=== PATIENT | male | born 1965 | race Two or more races ===

== ENCOUNTER 2017-07-18 16:43 | Emergency (ER) | payer OTHER ==
[2017-07-18 17:07] VITALS: RESP 16
--- NOTE | 2017-07-18 17:51 | EDPHY ---
H & P HPI/ROS: Chief complaint: Left 5th finger injury History of present illness: 52-year-old male presents to the emergency department for a left 5th finger injury. He fell and struck his finger against the ground. Since then he has had difficulty moving it. He denies other associated signs or symptoms including no open wounds. No abnormal coolness or paresthesias in the finger. No other trauma. Smoking Status: Never smoked Physical Exam: General: Alert, nontoxic Skin: No open wounds to the left 5th finger Musculoskeletal: No deformities. However he cannot extend the left 5th finger in the DIP and PIP joint, he is extending in the MCP joint well. Good flexion in a the DIP, PIP and MCP joint well. Vascular: Capillary refill brisk in the left 5th finger. Neurologic: Sensation intact in the left 5th finger. Constitutional: Initial Vital Signs Temperature (C) 37 C 07/18/17 17:05 Heart Rate 65 07/18/17 17:05 Respiratory Rate 16 07/18/17 17:05 Blood Pressure 110/76 07/18/17 17:05 O2 Sat (%) 97 07/18/17 17:05 O2 Delivery Mode Room Air Allergies/Adverse Reactions: No Known Allergies Allergy (Unverified 07/18/17 17:03) Home Medications: Medication Instructions Recorded Lisinopril/Hydrochlorothiazide 1 each PO 07/18/17 [Lisinopril-Hctz 10-12.5 mg Tab] Metformin HCl [Metformin 1000 mg] 1,000 mg PO 07/18/17 Statin Drug 07/18/17 MDM/Departure - MDM Imaging: I viewed and interpreted images myself Procedures: Procedure: Splint placement. A finger splint was applied. After application of the splint I returned and re- examined the patient. The splint was adequately immobilizing the joint and distal to the splint the patient's circulation and sensation was intact. Medications Given: Patient seen under the supervision of my secondary supervising physician Dr. Rhianna Edward. Patient presents to the emergency department for a left 5th finger injury. The finger is neurovascularly intact. He has difficulty extending it. X-ray is concerning for a edward injury, no fracture or dislocation. Splinted. Referred to hand surgery for recheck. Return precautions are given. ED Course/Re-evaluation: Included but not limited to soft tissue injury, bony fracture, joint dislocation - Depart Disposition: Home, Routine, Self-Care Clinical Impression: Finger injury Qualifiers: Encounter type: initial encounter Laterality: left Qualified Code(s): S69.92XA - Unspecified injury of left wrist, hand and finger(s), initial encounter Condition: Good Instructions: Finger Sprain (ED) Additional Instructions: Please follow-up with a hand doctor this week for continued evaluation and care If symptoms worsen or new symptoms develop return to the emergency room for recheck Referrals: NONE *PRIMARY CARE P,. [Primary Care Provider] - As per Instructions Rut Ugalde MD [Medical Doctor] - As per Instructions
[2017-07-18 18:53] VITALS: BP 118/72; PULSE 74; TEMP 98.1; O2SAT 95
== END 2017-07-18 18:52 | disposition home or self-care (01) ==
DX: S69.92XA Unspecified injury of left wrist, hand and finger(s), initial encounter (principal); W01.198A Fall on same level from slipping, tripping and stumbling with subsequent striking against other object, initial encounter
CPT/HCPCS: L3925